=== PATIENT | male | born 1985 | race Caucasian/White ===

== ENCOUNTER 2024-10-19 16:11 | Inpatient (IN) ==
[2024-10-19 17:06] LABS: INR 1.29 (0.85-1.14)
[2024-10-19 17:06] LABS: Hematocrit 38.3 % (38-53); Hemoglobin 13.8 g/dL (13.2-16.3); Mean Corpuscular Hemoglobin 40.9 pg (27-33); Mean Corpuscular Volume 113.5 fL (80-97); Mean Platelet Volume 7.8 fL (7.5-11.2); Platelet Count 211 10^3/uL (150-450); Red Blood Count 3.38 10^6/uL (4.06-5.63); Red Cell Distribution Width 15.3 % (12-17); White Blood Count 6.4 10^3/uL (3.6-10.2)
[2024-10-19 17:17] LABS: Alcohol, S < 13 mg/dL (<13); Creatine Kinase 242 U/L (10-223)
[2024-10-19 17:36] LABS: ALT 82 U/L (7-52); AST 120 U/L (13-39); Albumin/Globulin Ratio 1.2 (1-3); Alkaline Phosphatase 48 U/L (35-149); Anion Gap 17 mmol/L (2-16); Blood Urea Nitrogen 7 mg/dL (6-24); CO2 Carbon Dioxide 22 mmol/L (22-32); Calcium 8.5 mg/dL (8.6-10.3); Chloride 100 mmol/L (101-111); Creatinine, Serum 0.74 mg/dL (0.67-1.17); Globulin 3.3 g/dL (2-4); Glucose 139 mg/dL (70-100); Potassium 3.1 mmol/L (3.5-5.0); Sodium 139 mmol/L (135-145); Total Protein 7.3 g/dL (6.4-8.9); eGFR CKD-EPI 117.5 (>60)
[2024-10-19 17:37] LABS: Total Bilirubin 2.3 mg/dL (0.2-1.0)
[2024-10-19 17:42] LABS: High Sens Troponin Baseline 10 pg/mL (<20)
[2024-10-19] MEDS ORDERED: Lorazepam PYXIS KEY PRN ×2 (17:48→20:30)
[2024-10-19 17:51] LABS: ABS Lymphocytes 0.8 10^3/uL (1.0-4.8); ABS Monocytes 0.6 10^3/uL (0.0-1.1); Anisocytosis 1+; Eosinophil % 0.5 %; Macrocytosis 2+; Nucleated Red Blood Cells % 0.1 %/100WBC (0.0-0.8)
[2024-10-19] MEDS: LORazepam 2 mg VIAL 1 ml IV PUSH ONE ×2 (18:00→20:43)
[2024-10-19] MEDS: Lactated Ringers 1000 ml BAG 1,000 ML IV ONE (18:00)
[2024-10-19] MEDS: Thiamine 100 MG/ML 2 ml VIAL (200 mg) IV ONE (18:00)
[2024-10-19 18:04] LABS: Cholesterol 239 mg/dL; HDL Cholesterol 66.2 mg/dL; LDL Cholesterol 151 mg/dL; Triglycerides 108 mg/dL
[2024-10-19 18:35] LABS: Urine Appearance Clear; Urine Bilirubin Negative (Negative); Urine Blood Negative (Negative); Urine Color Yellow; Urine Glucose Trace (Negative); Urine Ketones 1+ (Negative); Urine Nitrite Negative (Negative); Urine Protein Trace (Negative); Urine Specific Gravity 1.017 (1.002-1.030); Urine Urobilinogen 2+ (Negative)
[2024-10-19 18:41] LABS: High Sensitivity Troponin 1 Hr 16 pg/mL (<20)
[2024-10-19 18:50] LABS: Urine Benzodiazepine Screen None Detected (None Detect); Urine Cannabinoids Screen None Detected (None Detect); Urine Opiates Screen None Detected (None Detect)
[2024-10-19 22:09] LABS: Magnesium 0.7 mg/dL (1.9-2.7)
[2024-10-19 22:38] LABS: Phosphorus 2.8 mg/dL (2.5-5.0)
[2024-10-19] MEDS: Magnesium Sulf 4 GM/100 ML IV 4,000 MG/100 ML BAG IVPB ONE (22:54)
[2024-10-19] MEDS: Potassium Chlor 20 meq TAB.ER PO ONE (22:54)
[2024-10-19] MEDS: Lactated Ringers 1000 ml BAG 1,000 ML IV SCH (22:54)
[2024-10-19] MEDS: Multivitamins/Minerals TAB PO SCH (22:54)
[2024-10-19 23:23] LABS: TSH Ultra Thyroid Stim Horm 4.02 mcIU/mL (0.34-5.60)
[2024-10-20 00:36] LABS: Direct Bilirubin 0.7 mg/dL (0.03-0.18); Total Bilirubin 2.2 mg/dL (0.2-1.0)
[2024-10-20] MEDS: Magnesium Sulf 4 GM/100 ML IV 4,000 MG/100 ML BAG IVPB ONE (05:10)
[2024-10-20 06:24] LABS: INR 1.23 (0.85-1.14)
[2024-10-20 06:31] LABS: ABS Basophils 0.1 10^3/uL (0.0-0.1); ABS Eosinophils 0.1 10^3/uL (0.0-0.5); ABS Lymphocytes 0.9 10^3/uL (1.0-4.8); ABS Monocytes 0.4 10^3/uL (0.0-1.1); ABS Neutrophils 2.6 10^3/uL (1.5-7.6); ABS Nucleated RBC 0.01 10^3/ul; Eosinophil % 1.9 %; Hematocrit 35.3 % (38-53); Hemoglobin 12.8 g/dL (13.2-16.3); Lymphocyte % 22.5 %; Mean Corpuscular Hemoglobin 41.1 pg (27-33); Mean Corpuscular Hgb Conc 36.4 g/dL (31-36); Mean Platelet Volume 7.8 fL (7.5-11.2); Nucleated Red Blood Cells % 0.3 %/100WBC (0.0-0.8); Platelet Count 187 10^3/uL (150-450); Red Blood Count 3.12 10^6/uL (4.06-5.63); Red Cell Distribution Width 15.7 % (12-17); White Blood Count 4.1 10^3/uL (3.6-10.2)
[2024-10-20 07:07] LABS: Albumin 3.5 g/dL (3.5-5.7); Albumin/Globulin Ratio 1.3 (1-3); Calcium 7.6 mg/dL (8.6-10.3); Creatinine, Serum 0.72 mg/dL (0.67-1.17); Globulin 2.8 g/dL (2-4); Magnesium 1.8 mg/dL (1.9-2.7); Potassium 3.5 mmol/L (3.5-5.0); Total Bilirubin 2.1 mg/dL (0.2-1.0); Total Protein 6.3 g/dL (6.4-8.9); eGFR CKD-EPI 118.4 (>60)
[2024-10-20 07:45] LABS: Phosphorus 3.6 mg/dL (2.5-5.0)
[2024-10-20] MEDS: Potassium Chlor 20 meq TAB.ER PO ONE (08:04)
[2024-10-20 09:40] LABS: Folate 3.35 ng/mL (5.90-24.80)
[2024-10-20] MEDS: Cyanocobalamin INJ 1,000 MCG/ML VIAL 1 ML VIAL IM SCH (14:19)
[2024-10-20 16:25] LABS: Calcium 8.1 mg/dL (8.6-10.3); Creatinine, Serum 0.72 mg/dL (0.67-1.17); Magnesium 1.9 mg/dL (1.9-2.7); Potassium 3.9 mmol/L (3.5-5.0); eGFR CKD-EPI 118.4 (>60)
[2024-10-21 05:38] LABS: Hematocrit 38.4 % (38-53); Hemoglobin 13.8 g/dL (13.2-16.3); INR 1.21 (0.85-1.14); Mean Corpuscular Hemoglobin 41.4 pg (27-33); Mean Corpuscular Hgb Conc 35.9 g/dL (31-36); Mean Corpuscular Volume 115.3 fL (80-97); Mean Platelet Volume 8.2 fL (7.5-11.2); Platelet Count 189 10^3/uL (150-450); Red Blood Count 3.33 10^6/uL (4.06-5.63); White Blood Count 3.9 10^3/uL (3.6-10.2)
[2024-10-21 06:15] LABS: Albumin 3.8 g/dL (3.5-5.7); Albumin/Globulin Ratio 1.3 (1-3); Calcium 8.2 mg/dL (8.6-10.3); Creatinine, Serum 0.72 mg/dL (0.67-1.17); Magnesium 1.9 mg/dL (1.9-2.7); Phosphorus 3.3 mg/dL (2.5-5.0); Potassium 4.2 mmol/L (3.5-5.0); Total Bilirubin 2.1 mg/dL (0.2-1.0); Total Protein 6.8 g/dL (6.4-8.9); eGFR CKD-EPI 118.4 (>60)
[2024-10-21] MEDS: Magnesium Sulfate 2 gm BAG 2 GM/50 ML BAG IVPB ONE (08:56)
[2024-10-21 10:19] VITALS: BP 108/83
== END 2024-10-21 12:50 | disposition home or self-care (01) | DRG 897 ==
LOC: ED 16:11 → EDHOLD 16:11 → SUATTDRO 21:15 → MED 22:30
PROVIDERS: ADMIT Student in an Organized Health Care Education/Training Program; ATTEND Hospitalist